=== PATIENT | male | born 1985 | race American Indian/Alaskan Native ===

== ENCOUNTER 2017-07-18 15:56 | Emergency (ER) | payer SELFPAY ==
[2017-07-18 19:11] LABS: Bilirubin,Urine NEG (Negative); Blood,Urine NEG (Negative); Ketones,Urine NEG (Negative); Leukocyte Esterase,Urine LG (Negative); Nitrite,Urine NEG (Negative); Protein,Urine <15 mg/dL mg/dL (Negative); RBC,Urine < 1.0 /HPF (0.0-6.0); Urobilinogen,Urine < 2.0 mg/dL (<2.0)
[2017-07-18] MEDS ORDERED: XYLOCAINE 1% MPF 5 mL INFILTRATI ONE (19:27)
[2017-07-18] MEDS ORDERED: ROCEPHIN IM ONE (19:27)
[2017-07-18] MEDS ORDERED: ZITHROMAX PO ONE (19:27)
--- NOTE | 2017-07-18 19:43 | Emergency Department Report ---
HPI - General Chief Complaint: Urogenital-Male Time Seen by Provider: 07/18/17 18:17 - HPI HPI: 32-year-old male presents today complaining of white penile discharge 1 week. Denies penile pain, rash or lesions. Denies history of STDs. Patient states he was sexually active for one week ago, unsure if partner has been diagnosed with anything. Denies urinary symptoms, burning with urination, blood in urine , increased urinary frequency or urgency. ED Past Medical Hx - Past Medical History Previous Medical History?: No - Surgical History Past Surgical History?: No - Social History Smoking Status: Never Smoker Substance Use Type: None ED Review of Systems ROS: Stated complaint: LEAKAGE FROM PENIS Other details as noted in HPI Constitutional: denies: chills, fever, malaise Eyes: denies: eye pain ENT: denies: ear pain, throat pain, congestion Respiratory: denies: cough, shortness of breath, wheezing Cardiovascular: denies: chest pain, palpitations Endocrine: no symptoms reported Gastrointestinal: denies: abdominal pain, nausea, vomiting Genitourinary: discharge. denies: urgency, dysuria, frequency, hematuria, testicular pain, testicular mass Skin: denies: rash, lesions Neurological: denies: headache, weakness, numbness, paresthesias Physical Exam - Physical Exam Vital Signs: Vital Signs 07/18/17 17:09 Temperature 98.5 F Pulse Rate 71 Respiratory 18 Rate Blood Pressure 125/79 O2 Sat by Pulse 98 Oximetry Physical Exam: GENERAL: The patient is well-developed and well-nourished. Patient is in NAD. HEAD: Normocephalic. Atraumatic. NECK: Supple, nontender, without lymphadenopathy. No meningitic signs are noted. CHEST/LUNGS: Clear to auscultation throughout. HEART/CARDIOVASCULAR: Regular rate and rhythm. No murmurs, rubs or gallops. ABDOMEN: Abdomen is soft, nontender. Bowel sounds normoactive. No guarding or rebound tenderness. No CVA tenderness to palpation. GENITAL: Offered, patient refused. EXTREMITIES: Peripheral pulses intact. Capillary refill less than 2 seconds. NEURO: Alert and oriented x 3. Normal gait. ED Course Vital Signs 07/18/17 17:09 Temperature 98.5 F Pulse Rate 71 Respiratory 18 Rate Blood Pressure 125/79 O2 Sat by Pulse 98 Oximetry ED Medical Decision Making - Lab Data Vital Signs 07/18/17 17:09 Temperature 98.5 F Pulse Rate 71 Respiratory 18 Rate Blood Pressure 125/79 O2 Sat by Pulse 98 Oximetry Lab Results 07/18/17 Range/Units 18:30 Urine Color Yellow (Yellow) Urine Turbidity Clear (Clear) Urine pH 5.0 (5.0-7.0) Ur Specific [place] 1.024 (1.003-1.030) Urine Protein <15 mg/dl (Negative) mg/dL Urine Glucose (UA) Neg (Negative) mg/dL Urine Ketones Neg (Negative) mg/dL Urine Blood Neg (Negative) Urine Nitrite Neg (Negative) Urine Bilirubin Neg (Negative) Urine Urobilinogen < 2.0 (<2.0) mg/dL Ur Leukocyte Esterase Lg (Negative) Urine WBC (Auto) 8.0 H (0.0-6.0) /HPF Urine RBC (Auto) < 1.0 (0.0-6.0) /HPF - Medical Decision Making 32-year-old male presents today complaining of penile discharge. His urinalysis reveals leukocyte esterase and elevated urine WBC. Patient has been treated with azithromycin and Rocephin. Patient is in no acute distress at this time. He will be discharged home and is encouraged to follow up with a primary care provider. He is encouraged to return to the emergency room for any worsening symptoms. Critical care attestation.: If time is entered above; I have spent that time in minutes in the direct care of this critically ill patient, excluding procedure time. ED Disposition Clinical Impression: Penile discharge Disposition: -01 TO HOME OR SELFCARE Is pt being admited?: No Does the pt Need Aspirin: No Condition: Stable Instructions: Gonococcal Urethritis (ED), Chlamydia Infection (ED) Additional Instructions: Follow-up with primary care provider. Return to the emergency department if symptoms worsen. Referrals: PRIMARY CARE, [Primary Care Provider] - 3-5 Days [facility] [Outside] - 3-5 Days Forms: Work/School Release Form(ED), STI Treatment and Prevention Time of Disposition: 20:03
[2017-07-18 20:12] VITALS: BP 112/75
== END 2017-07-18 20:11 | disposition home or self-care (01) ==
LOC: ED 15:56
DX: R36.9 Urethral discharge, unspecified (principal)
CPT/HCPCS: 81001; 87591; 96372; 99283; J0696